=== PATIENT | male | born 1980 | race Caucasian/White ===

== ENCOUNTER 2022-03-06 19:59 | Emergency (ER) | payer SELFPAY ==
[~2022-03-06] VITALS: Ht 175.3 cm; Wt 70.0 kg
[2022-03-06 20:09] VITALS: BP 136/84
[2022-03-06] MEDS ORDERED: TOPUD PO (21:18)
== END 2022-03-06 21:50 | disposition home or self-care (01) ==
LOC: ER 19:59
DX: S80.12XA Contusion of left lower leg, initial encounter (principal); F31.9 Bipolar disorder, unspecified; F20.9 Schizophrenia, unspecified; X58.XXXA Exposure to other specified factors, initial encounter; Y93.89 Activity, other specified; Y92.89 Other specified places as the place of occurrence of the external cause
CPT/HCPCS: 73590; 99283